=== PATIENT | female | born 1970 | race Caucasian/White ===

== ENCOUNTER → 2016-08-17 | Outpatient (CLI) | payer OTHER ==
[~2016-08-17] MED LIST: COLA100C2; IBUP400T; MIRALEX; VICO5TAB
--- NOTE | 2016-08-17 11:02 | REP ---
Right ankle series: Four views. History: Contusion. Findings: Four views of the right ankle demonstrate osteoarthritic spurring and joint space narrowing in the medial aspect of the ankle mortise. Osteoarthritic spurring is seen anteriorly and posteriorly at the ankle on lateral radiograph. There is some bony hypertrophy of the anterior talus. No fracture is evident. Achilles calcaneal spurring is seen. Possible osteocartilaginous loose body at the posterior joint line of the ankle. Impression: Ankle joint osteoarthritis, possible posterior loose body. Heel spur. No fracture seen. Signed by Mg Lazo MD 08/17/2016 11:33 A
== END ==
LOC: M ADAMS 10:26
PROVIDERS: ATTEND Physician Assistant Medical
DX: S90.01XA Contusion of right ankle, initial encounter (principal); W18.30XA Fall on same level, unspecified, initial encounter; Y92.009 Unspecified place in unspecified non-institutional (private) residence as the place of occurrence of the external cause

== ENCOUNTER → 2016-09-25 | Outpatient (CLI) | payer OTHER ==
[~2016-09-25] MED LIST changes: +EFFE75CA75 PO; +ZANT300T PO
--- NOTE | 2016-09-25 10:20 | REPMRS ---
Patient History The patient states she has not had a clinical breast exam in over a year. Patient is postmenopausal. Family history of prostate cancer in maternal grandfather at age 50 or over and breast cancer in maternal aunt under age 50. Digital Mammo Screening Bilat: September 25, 2016 - Exam #: [id number] Bilateral CC and MLO view(s) were taken. Technologist: Pepper Pitts, Technologist Prior study comparison: June 08, 2013, bilateral digital mammo screening bilat performed at [facility]. January 20, 2012, digital mammo diagnostic bilateral performed at [facility]. FINDINGS: There are scattered fibroglandular densities. There has been no change in the appearance of the mammogram from the prior studies. There is a mild amount of residual fibroglandular tissue which is fairly symmetric. There is no interval development of dominant mass, architectural distortion, or clustered microcalcification suggestive of malignancy. ASSESSMENT: BI-RADS/ACR category 1 mammogram. Negative. Recommendation Routine screening mammogram in 1 year (for women over age 40). This mammogram was interpreted with the aid of an FDA-approved computer-aided dectection system. Electronically Signed By: Phan Delcid MD 09/25/16 [id number]
== END ==
LOC: M RAD 09:34
PROVIDERS: ATTEND Family Medicine
DX: Z12.31 Encounter for screening mammogram for malignant neoplasm of breast (principal)

== ENCOUNTER 2016-11-15 21:47 | Emergency (ER) | payer OTHER ==
[~2016-11-15] VITALS: Ht 175.3 cm; Wt 100.0 kg
[~2016-11-15 21:47] MED LIST changes: -EFFE75CA75 PO; -ZANT300T PO
[2016-11-15] MEDS ORDERED: EFFE75CA75 PO (22:09)
[2016-11-15] MEDS ORDERED: NS 1,000 ML IV ONE (23:00)
[2016-11-15] MEDS ORDERED: METOCLOPRAMIDE INJ 10MG/2ML VIAL (J2765) IV ONE (23:00)
[2016-11-15] MEDS ORDERED: diphenhydrAMINE INJ 50MG/ML VIAL (J1200) IV ONE (23:00)
[2016-11-15] MEDS ORDERED: KETOROLAC 30 MG/ML VIAL (J1885) IV ONE (23:00)
[2016-11-15 23:09] LABS: BASO % 0.8 % (0.0-1.0); EOS # 0.2 K/mm3 (0.0-0.50); EOS % 2.5 % (0.0-3.0); LARGE UNSTAINED CELL # 0.1 K/mm3 (0.0-0.4); LARGE UNSTAINED CELL % 1.2 % (0.0-4.0); LYMPH # 2.2 K/mm3 (1.5-4.5); MEAN CORPUSCULAR HEMOGLOBIN 27.5 pg (27.0-33.0); MEAN CORPUSCULAR HGB CONC 32.8 g/dl (32.0-36.5); MEAN CORPUSCULAR VOLUME 83.9 fl (80.0-96.0); MONO # 0.4 K/mm3 (0.0-0.8); MONO % 7.1 % (0.0-5.0); NEUTROPHILS % 51.4 % (36.0-66.0); PLATELET COUNT, AUTOMATED 263 k/mm3 (150-450); RED CELL DISTRIBUTION WIDTH 14.9 % (11.5-14.5); WHITE BLOOD COUNT 5.8 K/mm3 (4.0-10.0)
[2016-11-15 23:28] LABS: ANION GAP 11 MEQ/L (8-16); BLOOD UREA NITROGEN 16 MG/DL (7-18); CALCIUM LEVEL 8.3 MG/DL (8.5-10.1); CARBON DIOXIDE LEVEL 24 MEQ/L (21-32); CHLORIDE LEVEL 108 MEQ/L (98-107); CREATININE FOR GFR 0.61 MG/DL (0.55-1.02); GLOMERULAR FILTRATION RATE > 60.0 (>58); GLUCOSE, FASTING 102 MG/DL (70-105); POTASSIUM SERUM 3.9 MEQ/L (3.5-5.1); SODIUM LEVEL 143 MEQ/L (136-145)
--- NOTE | 2016-11-16 | REPUSA ---
CT of the head Clinical history: Headache. Comparison: 01/07/2011. Technique: Multiple axial CT images were obtained through the head without administration of contrast . Findings: The ventricles and sulci are symmetric bilaterally. There is no evidence of acute hemorrhag e or infarct. There is no midline shift, mass effect, or extra-axial fluid collection. The osseous st ructures are unremarkable. The visualized paranasal sinuses and mastoid air cells are clear. Impression: Negative study.
[2016-11-16 01:55] VITALS: BP 109/64
== END 2016-11-16 02:01 | disposition home or self-care (01) ==
LOC: M ED 21:47
DX: G43.909 Migraine, unspecified, not intractable, without status migrainosus (principal); Z79.899 Other long term (current) drug therapy; Z98.0 Intestinal bypass and anastomosis status
CPT/HCPCS: 70450; 80048; 85025; 96374; 96375; 99284; J1200; J1885; J2765

== ENCOUNTER 2016-11-20 08:39 | Emergency (ER) | payer OTHER ==
[~2016-11-20] VITALS: Ht 175.3 cm; Wt 100.0 kg
[~2016-11-20 08:39] MED LIST changes: +EFFE75CA75 PO
[2016-11-20 09:49] LABS: INR 1.01
[2016-11-20 09:50] LABS: CONTROL LINE HCG INT CTR LINE PRESENT
[2016-11-20 09:53] LABS: BASO % 0.8 % (0.0-1.0); EOS # 0.1 K/mm3 (0.0-0.50); EOS % 2.8 % (0.0-3.0); LARGE UNSTAINED CELL # 0.1 K/mm3 (0.0-0.4); LARGE UNSTAINED CELL % 2.2 % (0.0-4.0); LYMPH # 1.2 K/mm3 (1.5-4.5); LYMPH % 35.1 % (24.0-44.0); MEAN CORPUSCULAR HEMOGLOBIN 28.1 pg (27.0-33.0); MEAN CORPUSCULAR HGB CONC 33.9 g/dl (32.0-36.5); MEAN CORPUSCULAR VOLUME 83.1 fl (80.0-96.0); MONO # 0.2 K/mm3 (0.0-0.8); MONO % 5.3 % (0.0-5.0); NEUTROPHILS # 1.9 K/mm3 (1.8-7.7); NEUTROPHILS % 53.8 % (36.0-66.0); PLATELET COUNT, AUTOMATED 247 k/mm3 (150-450); RED CELL DISTRIBUTION WIDTH 14.5 % (11.5-14.5); WHITE BLOOD COUNT 3.5 K/mm3 (4.0-10.0)
[2016-11-20 09:59] LABS: ALBUMIN 3.6 GM/DL (3.2-5.2); ALBUMIN/GLOBULIN RATIO 1.06 (1.00-1.93); ALKALINE PHOSPHATASE 78 U/L (45-117); ALT/SGPT 29 U/L (12-78); ANION GAP 5 MEQ/L (8-16); AST/SGOT 15 U/L (15-37); BILIRUBIN,DIRECT 0.1 MG/DL (0.0-0.2); BILIRUBIN,TOTAL 0.4 MG/DL (0.2-1.0); BLOOD UREA NITROGEN 12 MG/DL (7-18); CALCIUM LEVEL 8.4 MG/DL (8.5-10.1); CARBON DIOXIDE LEVEL 29 MEQ/L (21-32); CHLORIDE LEVEL 107 MEQ/L (98-107); CREATININE FOR GFR 0.62 MG/DL (0.55-1.02); FREE T4 0.84 NG/DL (0.76-1.46); GLOMERULAR FILTRATION RATE > 60.0 (>58); GLUCOSE, FASTING 97 MG/DL (70-105); POTASSIUM SERUM 3.8 MEQ/L (3.5-5.1); SODIUM LEVEL 141 MEQ/L (136-145)
--- NOTE | 2016-11-20 10:11 | REP ---
PORTABLE CHEST, SINGLE VIEW: COMPARISON: 03/24/2011. There is no evidence of acute infiltrate. No pleural effusion is seen. The heart is normal in size. The mediastinal silhouette is unremarkable. The visualized osseous structures are intact. IMPRESSION: No acute pulmonary disease. Signed by Phan Delcid MD 11/20/2016 05:40 P
[2016-11-20] MEDS ORDERED: ZANT300T PO (10:29)
[2016-11-20 10:43] VITALS: BP 137/83
--- NOTE | 2016-11-21 11:37 | ECGEPIP ---
Stationary ECG Study [facility] - ED Test Date: 2016-11-20 Pat Name: WALE SEGURA Department: Room: - Gender: F Editor In Chief: tc : 1970 Requested By: ROMI Alfaro Order Number: [id number] Reading MD: Destiny Harris Measurements Intervals [place] Rate: 62 P: 17 [place]: 149 QRS: 27 QRSD: 90 T: 13 QT: 406 QTc: 413 Interpretive Statements SINUS RHYTHM NSTTW ABNORMALITY NO PRIOR FOR COMPARISON Electronically Signed On 11-21-2016 11:37:04 EDT by Destiny Harris
== END 2016-11-20 10:44 | disposition home or self-care (01) ==
LOC: M ED 08:39
DX: R07.89 Other chest pain (principal); R94.31 Abnormal electrocardiogram [ECG] [EKG]; I10 Essential (primary) hypertension; E66.9 Obesity, unspecified; R51 Headache; Z98.84 Bariatric surgery status; Z79.899 Other long term (current) drug therapy

== ENCOUNTER → 2017-10-10 | Outpatient (REF) | payer OTHER | LOC: M LAB REF 21:47 | DX: L03.312 Cellulitis of back [any part except buttock and flank] (principal) ==

== ENCOUNTER 2017-11-27 06:52 | Emergency (ER) | payer OTHER | END 2017-11-27 08:32 | disposition home or self-care (01) | LOC: M ED 06:52 | DX: S99.912A Unspecified injury of left ankle, initial encounter (principal); X50.9XXA Other and unspecified overexertion or strenuous movements or postures, initial encounter; Y92.89 Other specified places as the place of occurrence of the external cause; F33.9 Major depressive disorder, recurrent, unspecified; F41.9 Anxiety disorder, unspecified; Z79.890 Hormone replacement therapy; Z79.899 Other long term (current) drug therapy | CPT/HCPCS: 73610 ==

== ENCOUNTER 2017-12-01 14:51 | Emergency (ER) | payer OTHER | END 2017-12-01 17:00 | disposition home or self-care (01) | LOC: M ED 14:51 | DX: S99.912A Unspecified injury of left ankle, initial encounter (principal); X50.9XXA Other and unspecified overexertion or strenuous movements or postures, initial encounter; Y92.89 Other specified places as the place of occurrence of the external cause | CPT/HCPCS: 73610 ==

== ENCOUNTER 2018-01-07 09:29 | Emergency (ER) | payer OTHER ==
[2018-01-07 10:29] LABS: BASO % 0.4 % (0.0-1.0); EOS # 0.1 10^3/uL (0.0-0.50); EOS % 1.1 % (0.0-3.0); HEMATOCRIT 39.5 % (36.0-47.0); HEMOGLOBIN 12.4 g/dl (12.0-15.5); IMMATURE GRANULOCYTE % 0.3 % (0-3.0); LYMPH # 1.6 10^3/uL (1.5-4.5); LYMPH % 22.3 % (24.0-44.0); MEAN CORPUSCULAR HEMOGLOBIN 26.4 pg (27.0-33.0); MEAN CORPUSCULAR HGB CONC 31.4 g/dl (32.0-36.5); MEAN CORPUSCULAR VOLUME 84.2 fl (80.0-96.0); MONO # 0.6 10^3/uL (0.0-0.8); MONO % 8.4 % (0.0-5.0); NEUTROPHILS # 4.9 10^3/uL (1.8-7.7); NEUTROPHILS % 67.5 % (36.0-66.0); PLATELET COUNT, AUTOMATED 267 10^3/uL (150-450); RED BLOOD COUNT 4.69 10^6/uL (4.00-5.40); RED CELL DISTRIBUTION WIDTH 14.9 % (11.5-14.5); WHITE BLOOD COUNT 7.2 10^3/uL (4.0-10.0)
[2018-01-07 10:34] LABS: KETONE, URINE AUTO RFX TRACE mg/dL (NEGATIVE); MUCUS, URINE RFX LARGE (NEGATIVE); NITRITE, URINE AUTO RFX NEGATIVE (NEGATIVE); RBC, URINE AUTO RFX TNTC /HPF (0-3); SPECIFIC GRAVITY UR AUTO RFX 1.021 (1.002-1.035); SQUAM EPITHELIAL CELL UR AURFX 0 /HPF (0-6)
[2018-01-07 10:40] LABS: INR 1.02; LEUKOCYTE ESTERASE UR AUTO RFX 2+ (NEGATIVE); PROTHROMBIN TIME 13.5 SECONDS (12.1-14.4); WBC, URINE AUTO RFX TNTC /HPF (0-3)
[2018-01-07 10:41] LABS: PARTIAL THROMBOPLASTIN TIME 28.4 SECONDS (25.4-37.6)
[2018-01-07 11:00] LABS: ALBUMIN 4.3 GM/DL (3.2-5.2); ALBUMIN/GLOBULIN RATIO 1.39 (1.00-1.93); ALKALINE PHOSPHATASE 71 U/L (45-117); ALT/SGPT 26 U/L (12-78); ANION GAP 9 MEQ/L (8-16); AST/SGOT 18 U/L (7-37); BILIRUBIN,DIRECT < 0.1 MG/DL (0.0-0.2); BILIRUBIN,TOTAL 0.4 MG/DL (0.2-1.0); BLOOD UREA NITROGEN 10 MG/DL (7-18); CALCIUM LEVEL 9.1 MG/DL (8.5-10.1); CARBON DIOXIDE LEVEL 25 MEQ/L (21-32); CHLORIDE LEVEL 102 MEQ/L (98-107); CREATININE FOR GFR 0.78 MG/DL (0.55-1.30); GLOMERULAR FILTRATION RATE > 60.0 (>58); GLUCOSE, FASTING 110 MG/DL (70-100); POTASSIUM SERUM 4.1 MEQ/L (3.5-5.1); SODIUM LEVEL 136 MEQ/L (136-145); TOTAL PROTEIN 7.4 GM/DL (6.4-8.2)
== END 2018-01-07 14:47 | disposition home or self-care (01) ==
LOC: M ED 09:29
DX: N30.01 Acute cystitis with hematuria (principal); I10 Essential (primary) hypertension; F41.9 Anxiety disorder, unspecified; F32.9 Major depressive disorder, single episode, unspecified; M54.5 Low back pain; Z90.710 Acquired absence of both cervix and uterus; Z98.84 Bariatric surgery status; Z79.890 Hormone replacement therapy
CPT/HCPCS: 76857

== ENCOUNTER → 2018-12-16 | Outpatient (CLI) | payer OTHER ==
[~2018-12-16] MED LIST changes: +CIPR-249 PO; +EFFE75CA2 PO; -EFFE75CA75 PO; +ESTR62CR PV; +HYDR-3715 PO; +LOSA25TA14 PO; +ZANT300T9 PO
== END ==
LOC: M OUTALCOH 07:40
PROVIDERS: ATTEND Psychiatry & Neurology Psychiatry
DX: Z53.9 Procedure and treatment not carried out, unspecified reason (principal)

== ENCOUNTER → 2018-12-30 | Outpatient (RCR) | payer OTHER | END | disposition still patient (30) | LOC: M OUTALCOH 12-24 13:02 | PROVIDERS: ATTEND Psychiatry & Neurology Psychiatry | DX: F10.20 Alcohol dependence, uncomplicated (principal) ==

== ENCOUNTER 2019-01-26 13:59 | Outpatient (RCR) | payer OTHER | END 2019-01-29 | LOC: M OUTALCOH 13:59 | PROVIDERS: ATTEND Psychiatry & Neurology Psychiatry | DX: F10.20 Alcohol dependence, uncomplicated (principal) ==

== ENCOUNTER 2019-02-28 16:00 | Outpatient (RCR) | payer OTHER | END 2019-03-01 | LOC: M OUTALCOH 16:00 | PROVIDERS: ATTEND Psychiatry & Neurology Psychiatry | DX: F10.20 Alcohol dependence, uncomplicated (principal) ==

== ENCOUNTER 2019-03-31 08:00 | Outpatient (RCR) | payer OTHER | END 2019-04-01 | LOC: M OUTALCOH 08:00 | PROVIDERS: ATTEND Psychiatry & Neurology Psychiatry | DX: F10.20 Alcohol dependence, uncomplicated (principal) ==

== ENCOUNTER 2019-04-21 10:00 | Outpatient (RCR) | payer OTHER | END 2019-04-30 | LOC: M OUTALCOH 10:00 | PROVIDERS: ATTEND Psychiatry & Neurology Psychiatry | DX: F10.20 Alcohol dependence, uncomplicated (principal) ==

== ENCOUNTER → 2019-05-04 | Outpatient (REF) | payer OTHER ==
[2019-05-04 20:30] LABS: HEMATOCRIT 35.3 % (36.0-47.0); HEMOGLOBIN 11.1 g/dl (12.0-15.5); MEAN CORPUSCULAR HEMOGLOBIN 26.7 pg (27.0-33.0); MEAN CORPUSCULAR HGB CONC 31.4 g/dl (32.0-36.5); MEAN CORPUSCULAR VOLUME 84.9 fl (80.0-96.0); PLATELET COUNT, AUTOMATED 300 10^3/uL (150-450); RED BLOOD COUNT 4.16 10^6/uL (4.00-5.40); WHITE BLOOD COUNT 4.5 10^3/uL (4.0-10.0)
[2019-05-04 20:44] LABS: C REACTIVE PROTEIN QUANTITATIV < 0.30 MG/DL (0.00-0.30); RHEUMATOID FACTOR QUANT < 10.0 IU/ML (<15.0)
[2019-05-04 20:57] LABS: ERYTHROCYTE SEDIMENTATION RATE 10 mm/hr (0-20)
[2019-05-07 00:06] LABS: ANTINUCLEAR ANTIBODIES DIRECT Negative (Negative); Lyme Disease IgG/IgM Antibodie <0.91 ISR (0.00-0.90); Lyme Disease IgM Ab Quantitati <0.80 index (0.00-0.79)
== END ==
LOC: M SFHCLERA 16:07
PROVIDERS: ATTEND Physician Assistant
DX: M25.50 Pain in unspecified joint (principal)
CPT/HCPCS: 84443; 85027; 85652; 86038; 86140; 86431; 86617; G0463

== ENCOUNTER 2019-06-01 09:53 | Outpatient (RCR) | payer OTHER ==
[2019-06-13] MEDS ORDERED: CELE1CAP7 PO (12:33)
[2019-06-13] MEDS ORDERED: FURO20TA2 PO (12:33)
[2019-06-13] MEDS ORDERED: CVS1CAP2 PO (12:33)
[2019-06-13] MEDS ORDERED: DICL1GEL3 TOP (12:33)
== END 2019-06-30 ==
LOC: M OUTALCOH 09:53
PROVIDERS: ATTEND Psychiatry & Neurology Addiction Medicine
DX: F10.20 Alcohol dependence, uncomplicated (principal)

== ENCOUNTER 2019-06-13 12:19 | Emergency (ER) | payer OTHER ==
[~2019-06-13] VITALS: Ht 175.3 cm; Wt 98.3 kg
[2019-06-13] MEDS ORDERED: DICL1GEL3 TOP (12:33)
[2019-06-13] MEDS ORDERED: CVS1CAP2 PO (12:33)
[2019-06-13] MEDS ORDERED: CELE1CAP7 PO (12:33)
[2019-06-13] MEDS ORDERED: FURO20TA2 PO (12:33)
[2019-06-13] MEDS ORDERED: NORCO, ANEXSIA 5/325MG TABLET (HYDROcodone/ACETAMINOPHEN) PO ONE (13:00)
[2019-06-13] MEDS ORDERED: ASPIRIN 81 MG CHEW TABLET PO ONE (13:00)
[2019-06-13 13:06] LABS: BASO % 0.8 % (0.0-1.0); EOS # 0.2 10^3/uL (0.0-0.5); EOS % 3.2 % (0.0-3.0); HEMATOCRIT 35.8 % (36.0-47.0); HEMOGLOBIN 11.2 g/dl (12.0-15.5); LYMPH % 39.5 % (24.0-44.0); MEAN CORPUSCULAR HEMOGLOBIN 25.9 pg (27.0-33.0); MEAN CORPUSCULAR HGB CONC 31.3 g/dl (32.0-36.5); MEAN CORPUSCULAR VOLUME 82.9 fl (80.0-96.0); MONO # 0.5 10^3/uL (0.0-0.8); MONO % 9.9 % (0.0-5.0); NEUTROPHILS # 2.3 10^3/uL (1.5-8.5); NEUTROPHILS % 46.2 % (36.0-66.0); PLATELET COUNT, AUTOMATED 286 10^3/uL (150-450); RED BLOOD COUNT 4.32 10^6/uL (4.00-5.40); WHITE BLOOD COUNT 5.1 10^3/uL (4.0-10.0)
[2019-06-13 13:38] LABS: BLOOD UREA NITROGEN 21 MG/DL (7-18); CALCIUM LEVEL 9.4 MG/DL (8.5-10.1); CARBON DIOXIDE LEVEL 25 MEQ/L (21-32); CHLORIDE LEVEL 108 MEQ/L (98-107); CK-MB VALUE MASS 3.2 NG/ML (<3.6); CPK CREATINE PHOSPHOKINASE 265 U/L (26-192); CREATININE FOR GFR 0.69 MG/DL (0.55-1.30); GLOMERULAR FILTRATION RATE > 60.0 (>58); GLUCOSE, FASTING 105 MG/DL (70-100); MB/CK RELATIVE INDEX 1.21 (< OR =4); SODIUM LEVEL 139 MEQ/L (136-145); TROPONIN I < 0.02 NG/ML (< 0.10)
--- NOTE | 2019-06-13 15:40 | REP ---
REASON: Chest pain. FINDINGS: The technique utilized in obtaining the radiograph has magnified the cardiac silhouette and accentuated the interstitial markings. The superior mediastinal structures are midline. The cardiac silhouette is unremarkable in size, shape, and position. The diaphragmatic surfaces of the lungs are regular, and the costophrenic angles are clear. The pulmonary zhou are clear. The imaged osseous structures are intact. IMPRESSION: There is no acute cardiopulmonary disease. Electronically Signed by Bhupendra Vargas DO 06/13/2019 03:44 P
[2019-06-13 17:27] LABS: CK-MB VALUE MASS 2.3 NG/ML (<3.6); CPK CREATINE PHOSPHOKINASE 195 U/L (26-192); MB/CK RELATIVE INDEX 1.18 (< OR =4); TROPONIN I < 0.02 NG/ML (< 0.10)
[2019-06-13 17:31] VITALS: BP 182/81
--- NOTE | 2019-06-14 09:09 | ECGEPIP ---
[facility] - ED Test Date: 2019-06-13 Pat Name: WALE MANDUJANO Department: Room: - Gender: Female Senior Net Architect: IZAIAH : 1970 Requested By: JEFFRY Stubbs Order Number: [id number] Reading MD: Destiny Harris Measurements Intervals [place] Rate: 60 P: 16 IA: 143 QRS: 26 QRSD: 93 T: 11 QT: 404 QTc: 405 Interpretive Statements SINUS RHYTHM WITH SINUS ARRHYTHMIA NSTTW abnormalities SIMILAR 11/20/16 Electronically Signed on 06-14-2019 9:09:17 EDT by Destiny Harris
--- NOTE | 2019-06-14 09:12 | ECGEPIP ---
[facility] - ED Test Date: 2019-06-13 Pat Name: WALE MANDUJANO Department: Room: - Gender: Female Director Business Development: : 1970 Requested By: SERA PALACIO Order Number: [id number] Reading MD: Destiny Harris Measurements Intervals [place] Rate: 59 P: 13 W[place]: 146 QRS: 38 QRSD: 93 T: 16 QT: 407 QTc: 404 Interpretive Statements SINUS BRADYCARDIA NSTTW abnormalities SIMILAR 06/13/19 Electronically Signed on 06-14-2019 9:12:26 EDT by Destiny Harris
== END 2019-06-13 17:48 | disposition home or self-care (01) ==
LOC: M ED 12:19
DX: R07.89 Other chest pain (principal); R60.0 Localized edema; E03.9 Hypothyroidism, unspecified; E28.2 Polycystic ovarian syndrome; F41.9 Anxiety disorder, unspecified; F32.9 Major depressive disorder, single episode, unspecified; Z87.891 Personal history of nicotine dependence; Z79.899 Other long term (current) drug therapy

== ENCOUNTER 2019-07-13 09:51 | Outpatient (RCR) | payer OTHER ==
[~2019-07-13 09:51] MED LIST changes: +CELE1CAP7 PO; +CVS1CAP2 PO; +DICL1GEL3 TOP; +FURO20TA2 PO
== END 2019-07-31 ==
LOC: M OUTALCOH 09:51
PROVIDERS: ATTEND Psychiatry & Neurology Addiction Medicine
DX: F10.20 Alcohol dependence, uncomplicated (principal)

== ENCOUNTER 2019-08-29 13:15 | Outpatient (RCR) | payer OTHER | END 2019-08-30 | LOC: M OUTALCOH 13:15 | PROVIDERS: ATTEND Psychiatry & Neurology Addiction Medicine | DX: F10.20 Alcohol dependence, uncomplicated (principal) ==

== ENCOUNTER → 2019-10-19 | Outpatient (CLI) | payer OTHER ==
[~2019-10-19] MED LIST changes: +PROHANCE 279.3MG/ML 15ML VIAL As Ordered ONE; +PROHANCE 279.3MG/ML 5ML VIAL As Ordered ONE
--- NOTE | 2019-10-19 16:40 | REPVR ---
PROCEDURE INFORMATION: Exam: MR Right Lower Extremity Joint Without and With Contrast; Ankle Exam date and time: 10/19/2019 2:54 PM Age: 49 years old Clinical indication: Patient HX: Right ankle pain, S/P fall TECHNIQUE: Imaging protocol: MR of the Right lower extremity without and with contrast. Exam focused on the ankle. Contrast material: PROHANCE; Contrast volume: 20 ml; Contrast route: INTRAVENOUS (IV); COMPARISON: CR Ankle, complete 12/01/2017 4:09 PM FINDINGS: There is no evidence of acute fracture or dislocation. Alignment is anatomic. There is mild bone marrow edema along the posteromedial aspect of the talar dome, as well as the apposing surface of the medial malleolus, which may be degenerative in nature or secondary to bony contusions/osteochondral injuries. There are mild degenerative changes. Subcortical cystic change is noted in the 2nd and 3rd metatarsal bases. Bone marrow signal is otherwise normal. The visualized portions of the medial, lateral and anterior ankle tendons are intact. There is a large amount of loculated fluid in the posterior tibialis, flexor digitorum longus and flexor hallucis longus tendon sheaths. The plantar fascia and Achilles tendon are also intact. There is normal signal in the sinus Tarsi. The anterior talofibular ligament is torn. The posterior talofibular ligament is irregular and heterogeneous. The calcaneofibular ligament is poorly seen. The visualized portions of the spring ligament and deltoid ligament complex are intact. IMPRESSION: 1. Lateral ankle sprain, as described above. 2. Moderate posterior tibialis, flexor digitorum longus and flexor hallucis longus tenosynovitis. 3. Additional findings, as above. Electronically signed by: Marty Callaway On 10/19/2019 16:40:15 PM
== END ==
LOC: M RAD 14:21
PROVIDERS: ATTEND Podiatrist Foot & Ankle Surgery
DX: S93.401A Sprain of unspecified ligament of right ankle, initial encounter (principal); X58.XXXA Exposure to other specified factors, initial encounter; Y92.9 Unspecified place or not applicable; M65.871 Other synovitis and tenosynovitis, right ankle and foot
CPT/HCPCS: 73723; A9576